=== PATIENT | female | born 1940 | race Caucasian/White ===

== ENCOUNTER → 2016-10-06 | Outpatient (REF) ==
[2016-10-06 15:51] LABS: THYROID STIMULATING HORMONE 4.18 uIU/mL (0.465-4.680)
== END ==
LOC: ZLAB.WCH 15:11
PROVIDERS: Family Medicine
DX: Z01.89 Encounter for other specified special examinations (principal)

== ENCOUNTER → 2016-10-06 | Outpatient (REF) | LOC: ZLAB.WCH 14:45 → EDSEX 14:45 | DX: Z01.89 Encounter for other specified special examinations (principal) ==

== ENCOUNTER → 2016-11-23 | Outpatient (REF) ==
[2016-11-23 14:50] LABS: THYROID STIMULATING HORMONE 3.28 uIU/mL (0.465-4.680)
== END ==
LOC: ZLAB.WCH 11:19
PROVIDERS: Family Medicine
DX: Z01.89 Encounter for other specified special examinations (principal)

== ENCOUNTER 2017-10-11 11:00 | Outpatient (RCR) | payer MEDICARE | END 2017-11-26 | disposition home or self-care (01) | LOC: WSPT | DX: M79.651 Pain in right thigh (principal); M19.90 Unspecified osteoarthritis, unspecified site; M62.81 Muscle weakness (generalized); G62.89 Other specified polyneuropathies; F33.9 Major depressive disorder, recurrent, unspecified; Z79.899 Other long term (current) drug therapy | CPT/HCPCS: G8978-GP; G8979-GP ==

== ENCOUNTER 2017-11-01 14:45 | Outpatient (RCR) | payer MEDICARE | END 2017-11-13 10:09 | disposition home or self-care (01) | LOC: WSOT 14:45 | DX: M19.012 Primary osteoarthritis, left shoulder (principal); M62.81 Muscle weakness (generalized); M79.651 Pain in right thigh; G61.0 Guillain-Barre syndrome; F33.9 Major depressive disorder, recurrent, unspecified | CPT/HCPCS: G8987-GO; G8988-GO ==

== ENCOUNTER → 2018-02-02 | Outpatient (REF) ==
[2018-02-02 17:05] LABS: THYROID STIMULATING HORMONE 2.8 uIU/mL (0.465-4.680)
== END ==
LOC: ZLAB.WCH 16:17
PROVIDERS: Family Medicine
DX: Z01.89 Encounter for other specified special examinations (principal)